=== PATIENT | male | born 1960 | race Two or more races ===

== ENCOUNTER 2024-04-13 07:10 | Emergency (ER) | payer BC, MEDICAID, OTHER ==
[~2024-04-13] VITALS: Ht 182.9 cm; Wt 78.7 kg
[2024-04-13 07:38] VITALS: BP 146/86; PULSE 127; RESP 16; TEMP 98.6; O2SAT 97
[2024-04-13] MEDS ORDERED: IBUP-1454 PO (08:21)
[2024-04-13] MEDS: IBUPROFEN 600 MG TAB PO ONE (08:26)
== END 2024-04-13 08:58 | disposition home or self-care (01) ==
LOC: ER 07:10
DX: R51.9 Headache, unspecified (principal); I10 Essential (primary) hypertension
CPT/HCPCS: 70450